=== PATIENT | male | born 1975 | race Caucasian/White ===

== ENCOUNTER 2018-12-09 03:32 | Emergency (ER) | payer OTHER ==
[~2018-12-09] VITALS: Ht 177.8 cm; Wt 110.2 kg
[2018-12-09 03:35] VITALS: BP 140/81
--- NOTE | 2018-12-09 03:35 | NUR ---
PT AMBULATED TO ER BED 06
--- NOTE | 2018-12-09 03:35 | NUR ---
43/M PRESENTS TO ED WITH , C/O WAKING UP TO SUDDEN ONSET SEVERE, UNCONTROLLABLE SHAKING, X10 MINS. REPORTS SUBJECTIVE FEVER 7 HRS AGO. DENIES COUGH, CP, TEMP 100.8, HR 136, COOLING MEASURES INITIATED. REPORTS 6/10 BL THIGH PAIN. PT AOX4, PERRLA 3MM, SKIN NORMAL WARM AND DRY, SPO2 97% ON O2 2L NC, RR 28 EVEN AND LABORED. LUNG SOUNDS CLEAR BL. HR 136, ST ON MONITOR. DENIES MED HX OR RX. REPORTS OCCASIONAL ALCOHOL USE. DENIES SMOKING OR SUBSTANCE ABUSE.
--- NOTE | 2018-12-09 04:00 | NUR ---
RECEIVED CARE OF PT FROM CORI BURCH. PT IS A/O X 4, AWAKE. FEELS WARM TO TOUCH, NO SHIVERING AT THIS TIME. DENIES PAIN, SOB AT THIS TIME.
[2018-12-09] MEDS ORDERED: NACL 0.9% 500 ML IV SCH (04:49)
[2018-12-09] MEDS ORDERED: ACETAMINOPHEN EXTRA STRENGTH 500 MG TAB PO ONE (05:00)
[2018-12-09] MEDS ORDERED: KETOROLAC 15 MG/ML VIAL IVP ONE (05:00)
[2018-12-09] MEDS ORDERED: NACL 0.9% 1,000 ML IV ONE ×2 (05:00→05:50)
--- NOTE | 2018-12-09 05:16 | NUR ---
XRAY AT BEDSIDE.
[2018-12-09 05:25] LABS: BASOPHILS % (AUTO) 0.7 % (0.0-2.0); EOSINOPHILS # (AUTO) 0.1 K/uL (0-0.4); EOSINOPHILS % (AUTO) 1.4 % (0.0-4.0); HEMATOCRIT 43.3 % (36-52); HEMOGLOBIN 14.4 g/dL (12.0-18.0); LYMPHOCYTES # (AUTO) 1.3 K/uL (2.0-11.5); LYMPHOCYTES % (AUTO) 32.6 % (20.5-51.1); MEAN CORPUSCULAR HEMOGLOBIN 29 pg (27-31); MEAN CORPUSCULAR HGB CONC 33 g/dL (33-37); MEAN CORPUSCULAR VOLUME 86.1 fL (80-94); MONOCYTES % (AUTO) 0.8 % (1.7-9.3); NEUTROPHILS # (AUTO) 2.6 K/uL (1.8-7.7); NEUTROPHILS % (AUTO) 64.5 % (42.2-75.2); PLATELET COUNT (AUTO) 159 K/uL (140-450); RED BLOOD CELL COUNT(AUTO) 5.03 MIL/uL (4.20-6.10); RED CELL DISTRIBUTION WIDTH 13.7 % (11.6-13.7)
[2018-12-09 05:29] LABS: APPEARANCE,URINE CLEAR (CLEAR); BILIRUBIN,URINE NEGATIVE (NEGATIVE); BLOOD, URINE NEGATIVE (NEGATIVE); COLOR,URINE YELLOW (YELLOW); LEUKOCYTE ESTERASE ,URINE NEGATIVE (NEGATIVE); NITRITE, URINE NEGATIVE (NEGATIVE); PH,URINE 5.5 (5.0-9.0); UGLUCOSE NEGATIVE (NEGATIVE)
[2018-12-09 05:31] LABS: ANION GAP 19.9 (8-16); CARBON DIOXIDE 25.5 mmol/L (21-32); CREATININE 1.3 mg/dL (0.7-1.3); POTASSIUM 3.4 mmol/L (3.5-5.1)
[2018-12-09 05:37] LABS: ALBUMIN 4.1 g/dL (3.4-5.0); TOTAL BILIRUBIN 0.6 mg/dL (0.0-1.0)
[2018-12-09 05:38] LABS: RBC,URINE 0-5 /HPF (0-5)
--- NOTE | 2018-12-09 06:25 | NUR ---
PT SLEEPING COMFORTABLY IN BED. CONTINUING TO MONITOR V/S. PT REMAINS MILDLY TACHYCARDIC AT 106. ORAL TEMP DECREASED TO 100.8
[2018-12-09 07:20] VITALS: BP 99/54
== END 2018-12-09 07:19 | disposition home or self-care (01) ==
LOC: MED 03:32
DX: B34.9 Viral infection, unspecified (principal)
CPT/HCPCS: 36415; 71045; 80053; 81001; 83605; 84484; 85025; 87040; 87086; 93005; 96374; 99284; J1885; J7030; Q0092